=== PATIENT | female | born 1950 | race Caucasian/White ===

== ENCOUNTER 2025-04-22 16:58 | Emergency (ER) | payer MEDICARE, OTHER ==
[~2025-04-22] VITALS: Ht 162.6 cm; Wt 69.0 kg
[~2025-04-22 16:58] MED LIST: ALBU90OI INH; CEPH500; DOXY100 PO; GUAI600T33; HYDGUAL120
[2025-04-22] MEDS ORDERED: ZESTORETIC 20-1 EAC3 PO (17:27)
[2025-04-22] MEDS ORDERED: ATOR20 PO (17:27)
[2025-04-22] MEDS ORDERED: Voltaren100 GM TOP (17:54)
[2025-04-22] MEDS ORDERED: Robaxin750 MG PO (17:54)
== END 2025-04-22 18:08 | disposition home or self-care (01) ==
LOC: ER 16:58
DX: M54.50 Low back pain, unspecified (principal); G89.29 Other chronic pain; Z79.899 Other long term (current) drug therapy
CPT/HCPCS: 99283; A9270

== ENCOUNTER 2025-06-03 00:42 | Emergency (ER) | payer MEDICARE, OTHER ==
[~2025-06-03] VITALS: Ht 162.6 cm; Wt 59.0 kg
[~2025-06-03 00:42] MED LIST changes: +ATOR20 PO; +Robaxin750 MG PO; +Voltaren100 GM TOP; +ZESTORETIC 20-1 EAC3 PO
[2025-06-03 01:54] LABS: BASOPHILS ABSOLUTE AUTO 0.04 K/mm3 (0.00-0.23); BASOPHILS PERCENT AUTO 1 % (0-2); EOSINOPHILS ABSOLUTE AUTO 0.13 K/mm3 (0.00-0.68); EOSINOPHILS PERCENT AUTO 2 % (0-6); Hematocrit 35.1 % (33.0-51.0); Hemoglobin 11.9 g/dL (11.5-16.0); IMMATURE GRAN ABSOLUTE AUTO 0.06 K/mm3 (0.00-0.10); IMMATURE GRAN PERCENT AUTO 1 % (0-1); LYMPHOCYTES ABSOLUTE AUTO 1.28 K/mm3 (0.84-5.20); LYMPHOCYTES PERCENT AUTO 18 % (21-46); MONOCYTES ABSOLUTE AUTO 0.52 K/mm3 (0.16-1.47); MONOCYTES PERCENT AUTO 7 % (4-13); Mean Corpuscular HGB Conc 33.9 g/dL (31.5-36.5); Mean Corpuscular Volume 91 fL (80-100); NEUTROPHILS ABSOLUTE AUTO 5.20 K/mm3 (1.96-9.15); NEUTROPHILS PERCENT AUTO 72 % (41-73); NRBC ABSOLUTE 0.00 K/mm3 (0.00-0.02); NRBC Auto 0.0 /100 WBC (0.0-0.2); Platelet Count 230 K/mm3 (150-400); RDW Coefficient Variation 13.1 % (11.7-14.2); RDW Standard Deviation 43.2 fL (35.1-46.3)
[2025-06-03 01:58] LABS: Alanine Aminotransfer (ALT/SGP 26.0 U/L (12-78); Albumin, Blood 3.1 g/dL (3.4-5.0); Albumin/Globulin Ratio 1.1 (0.8-1.8); Anion Gap 8.0 mmol/L (3-11); Aspartate Aminotrans (AST/SGOT 21.0 U/L (12-37); Bilirubin, Total 0.2 mg/dL (0.1-1.0); Blood Urea Nitrogen 20.0 mg/dL (8-24); CO2, Blood 27.0 mmol/L (21-32); Calcium, Blood 8.5 mg/dL (8.5-10.1); Chloride, Blood 105.0 mmol/L (98-108); Creatinine, Blood 0.49 mg/dL (0.40-1.00); Globulin, Blood 2.9 g/dL (2.2-4.0); Glucose, Blood 189.0 mg/dL (70-99); Magnesium, Blood 1.9 mg/dL (1.6-2.4); Potassium, Blood 3.1 mmol/L (3.5-5.5); Sodium, Blood 137.0 mmol/L (136-145); Total Protein, Blood 6.0 g/dL (6.4-8.2)
== END 2025-06-03 04:00 | disposition home or self-care (01) ==
LOC: ER 00:42
PROVIDERS: Student in an Organized Health Care Education/Training Program
DX: R07.89 Other chest pain (principal); I10 Essential (primary) hypertension; E78.5 Hyperlipidemia, unspecified; Z79.899 Other long term (current) drug therapy
CPT/HCPCS: 71045; 80053; 83735; 84484; 85025; 99285-25